=== PATIENT | male | born 1955 | race Caucasian/White ===

== ENCOUNTER 2020-03-20 14:26 | Outpatient (CLI) | payer BC, SELFPAY ==
[2020-03-20 15:45] LABS: Alanine Aminotransferase 21 U/L (4-50); Albumin Level 4.4 g/dL (3.5-5.1); Alkaline Phosphatase 62 U/L (38-126); Aspartate Amino Transferase 26 U/L (17-59); Bilirubin,Total 0.5 mg/dL (0.2-1.3); Blood Urea Nitrogen 18 mg/dL (9-20); Calcium 9.2 mg/dL (8.4-10.2); Carbon Dioxide 25 mmol/L (22-30); Chloride 108 mmol/L (98-107); Estimated Glomerular Filt Rate > 60; Glucose 98 mg/dL (75-110); Potassium 4.2 mmol/L (3.4-5.0); Sodium 140 mmol/L (137-145)
== END 2020-03-20 14:27 | disposition home or self-care (01) ==
PROVIDERS: PCP Family Medicine; Visit Provider Internal Medicine Cardiovascular Disease
DX: E78.5 Hyperlipidemia, unspecified (principal)
CPT/HCPCS: 36415; 80053

== ENCOUNTER 2020-12-17 10:28 | Outpatient (CLI) | payer BC, SELFPAY ==
[2020-12-17 11:23] LABS: Alanine Aminotransferase 22 U/L (4-50); Albumin Level 3.9 g/dL (3.5-5.1); Alkaline Phosphatase 50 U/L (38-126); Anion Gap 5 mmol/L (8-16); Aspartate Amino Transferase 28 U/L (17-59); Bilirubin,Total 0.7 mg/dL (0.2-1.3); Blood Urea Nitrogen 20 mg/dL (9-20); Calcium 8.8 mg/dL (8.4-10.2); Carbon Dioxide 29 mmol/L (22-30); Chloride 107 mmol/L (98-107); Cholesterol 228 mg/dL (0-200); Estimated Glomerular Filt Rate 56; Glucose 75 mg/dL (75-110); HDL Direct 43 mg/dL; Potassium 4.5 mmol/L (3.4-5.0); Sodium 141 mmol/L (137-145); Triglycerides 139 mg/dL (<150)
[2020-12-17 11:34] LABS: LDL Cholesterol Direct 146 mg/dL
== END 2020-12-17 10:29 | disposition home or self-care (01) ==
LOC: ANHLAB 10:29
PROVIDERS: PCP Family Medicine; Visit Provider Internal Medicine Cardiovascular Disease
DX: E78.5 Hyperlipidemia, unspecified (principal)
CPT/HCPCS: 36415; 80053; 80061

== ENCOUNTER 2023-03-21 18:57 | Emergency (ER) | payer BC, MEDICARE, SELFPAY ==
[2023-03-21 19:12] VITALS: BP 141/79; PULSE 77; RESP 18; TEMP 36.6; O2SAT 96
--- NOTE | 2023-03-21 19:19 | ED.WOUNDLAC ---
HPI - Wound/Laceration General Chief Complaint: Wound/Laceration Stated Complaint: laceration lt arm Time Seen by Provider: 03/21/23 19:19 Source: patient Mode of arrival: ambulatory Limitations: no limitations History of Present Illness HPI narrative: 67-year-old male presented for complaint of laceration to the left forearm after injury today. He states he was using a screwdriver to twist a pull in to the ground when the screwdriver handle broke and the metal end struck him in the forearm. He immediately rinsed the site with the hose water and applied gauze and an sarita wrap. Denies decreased ROM to fingers/hand, numbness, tingling or weakness. Related Data Home Medications Medication Instructions Recorded Confirmed aspirin 81 mg tablet,delayed 81 mg PO DAILY 10/15/19 03/17/23 release (Aspir-Low) coQ10 (ubiquinol) 100 mg capsule 100 mg PO BID 10/15/19 03/17/23 dietary supplement tablet PO 10/15/19 03/17/23 finasteride 1 mg tablet 1 mg PO DAILY 10/15/19 03/17/23 krill oil 500 mg capsule mg PO 10/15/19 03/17/23 saw palmetto 160 mg capsule 160 mg PO BID 10/15/19 03/17/23 tamsulosin 0.4 mg capsule (Flomax) 0.4 mg PO DAILY 10/15/19 03/17/23 zinc 50 mg tablet (Chelated Zinc) 50 mg PO DAILY 10/15/19 03/17/23 Allergies Allergy/AdvReac Type Severity Reaction Status Date / Time No Known Allergies Allergy Unknown Verified 03/17/23 10:55 Review of Systems Review of Systems: CONSTITUTIONAL: Denies body aches, fever, chills, or sweats. EYES: Denies visual changes, redness, or discharge. ENT: Denies rhinorrhea, congestion CARDIOVASCULAR: Denies chest pain, palpitations, or edema. RESPIRATORY: Denies cough or dyspnea. GASTROINTESTINAL: Denies abdominal pain, nausea, vomiting, or diarrhea. SKIN: Per HPI MUSCULOSKELETAL: Denies back pain, joint pain, or myalgia. NEUROLOGIC: Denies headache, numbness, tingling, or weakness. [facility] Past Medical History Medical History CAD in [place] artery CKD (chronic kidney disease) stage 3, GFR 30-59 ml/min Dyslipidemia Former smoker Surgical History Surgical History (Updated 03/21/23 @ 20:27 by Loree Benoit APRN) History of PTCA Family History Family History Father Family history of diabetes mellitus in first degree relative Family history of cardiovascular disease, Onset Age: 79 Diabetes mellitus Mother Family history of coronary artery disease Patient's mother is Family history of lung disease Sibling Hypertension Family history of Parkinson's disease Social History Social History Social History: 30 pack year Smoking packs per day: 1 Smoking cigarettes per day: 20.0 Years smoked: 25 Smoking pack-years: 25.00 Smoking status: Former smoker Tobacco type: cigarettes Second hand tobacco smoke exposure: Yes Smoking end date: 10/09/06 Alcohol intake: current Occupation/Education: retired Additional occupation/education comments: Patient retired from working in the [employer] 2021. Comments At time of signature, I have reviewed and agree with nursing past medical, surgical, social and family history unless otherwise noted. Please see nursing chart for further information. There is no relevant family history pertinent to the presenting complaint Exam Narrative: GENERAL: Well-appearing HEAD: Normocephalic, atraumatic. EYES: conjunctivae clear, and EOMI. ENT: Mucous membranes moist. Oropharynx without edema, erythema or lesions. NECK: Supple. No lymphadenopathy CHEST: Clear to auscultation. HEART: Regular rate and rhythm. SKIN: Warm, dry. Laceration to inner left forearm 5.5 x 1.5 cm, gaping, fat exposed, bleeding controlled. No apparent tendon or nerve involvement. EXT: Full active ROM to hand and fingers. Strength and sensation intact to hands. Pulses strong and equal bilaterally. Cap refill <3seconds.
[2023-03-21] MEDS: TETANUS,DIPHTHERIA,AC PERTUSSIS ADULT (0.5 ML) BOOSTRIX IM (19:30)
== END 2023-03-21 20:25 | disposition home or self-care (01) ==
PROVIDERS: Emergency Provider Nurse Practitioner Family; PCP Family Medicine
DX: S51.812A Laceration without foreign body of left forearm, initial encounter (principal); W27.0XXA Contact with workbench tool, initial encounter; Z23 Encounter for immunization; Z87.891 Personal history of nicotine dependence; I25.10 Atherosclerotic heart disease of native coronary artery without angina pectoris; E78.5 Hyperlipidemia, unspecified; I13.10 Hypertensive heart and chronic kidney disease without heart failure, with stage 1 through stage 4 chronic kidney disease, or unspecified chronic kidney disease; N18.30 Chronic kidney disease, stage 3 unspecified; Z79.82 Long term (current) use of aspirin
CPT/HCPCS: 12042; 90471; 90715; 99213; G0463

== ENCOUNTER 2023-03-29 14:17 | Emergency (ER) | payer BC, MEDICARE, SELFPAY ==
[2023-03-29 14:24] VITALS: BP 131/70; PULSE 57; RESP 18; TEMP 36.6; O2SAT 99
--- NOTE | 2023-03-29 14:38 | ED.SKABFB ---
HPI - Skin/Abscess/Foreign Bdy General Chief complaint: Skin/Abscess/Foreign Body Stated complaint: Suture Removal Lt Forearm Time Seen by Provider: 03/29/23 14:27 Source: patient, RN notes reviewed and old records reviewed Mode of arrival: ambulatory Limitations: no limitations History of Present Illness HPI narrative: Patient presents today requesting suture removal after sustaining a laceration to the left forearm on 03/21/23 and having 10 suture placed at [facility]. He was placed on 5 days of Keflex. States he does have some tenderness and redness to the area. Related Data Home Medications Medication Instructions Recorded Confirmed aspirin 81 mg tablet,delayed 81 mg PO DAILY 10/15/19 03/29/23 release (Aspir-Low) coQ10 (ubiquinol) 100 mg capsule 100 mg PO BID 10/15/19 03/29/23 finasteride 1 mg tablet 1 mg PO DAILY 10/15/19 03/29/23 saw palmetto 160 mg capsule 160 mg PO BID 10/15/19 03/29/23 tamsulosin 0.4 mg capsule (Flomax) 0.4 mg PO DAILY 10/15/19 03/29/23 zinc 50 mg tablet (Chelated Zinc) 50 mg PO DAILY 10/15/19 03/29/23 Allergies Allergy/AdvReac Type Severity Reaction Status Date / Time No Known Allergies Allergy Unknown Verified 03/29/23 14:32 Review of Systems Review of Systems: CONSTITUTIONAL: Denies body aches, fever, chills, or sweats. EYES: Denies visual changes, redness, or discharge. ENT: Denies rhinorrhea, congestion, sore throat, or otalgia. CARDIOVASCULAR: Denies chest pain, palpitations, or edema. RESPIRATORY: Denies cough or dyspnea. GASTROINTESTINAL: Denies abdominal pain, nausea, vomiting, or diarrhea. GENITOURINARY: Denies dysuria or hematuria. SKIN: Denies rash, itching. + laceration to left forearm MUSCULOSKELETAL: Denies back pain, joint pain, or myalgia. NEUROLOGIC: Denies headache, numbness, tingling, or weakness. PSYCH: Denies depression or anxiety. [facility] Past Medical History Medical History CAD in [place] artery CKD (chronic kidney disease) stage 3, GFR 30-59 ml/min Dyslipidemia Former smoker Surgical History Surgical History History of PTCA Family History Family History Father Family history of diabetes mellitus in first degree relative Family history of cardiovascular disease, Onset Age: 79 Diabetes mellitus Mother Family history of coronary artery disease Patient's mother is Family history of lung disease Sibling Hypertension Family history of Parkinson's disease Social History Social History Social History: 30 pack year Smoking packs per day: 1 Smoking cigarettes per day: 20.0 Years smoked: 25 Smoking pack-years: 25.00 Smoking status: Former smoker Tobacco type: cigarettes Second hand tobacco smoke exposure: Yes Smoking end date: 10/09/06 Alcohol intake: current Occupation/Education: retired Additional occupation/education comments: Patient retired from working in the [employer] 2021. Comments At time of signature, I have reviewed and agree with nursing past medical, surgical, social and family history unless otherwise noted. Please see nursing chart for further information. There is no relevant family history pertinent to the presenting complaint Exam Narrative: GENERAL: Well-appearing, well-nourished, and in no acute distress. HEAD: Normocephalic, atraumatic. EYES: EOMI. No redness or drainage. Conjunctivae normal. ENT: Mucous membranes pink and moist. NECK: Normal AROM. CHEST: No respiratory distress. EXTREMITIES: 10 intact sutures to the left forearm laceration. Laceration has some surrounding edema and erythema. As the sutures were removed, there is a scant amount of serous sanguinous discharge. Tenderness to palpation of the laceration. SKIN: Warm, dry, no rash. Capillary refill normal. Normal skin turgor. NEUR
== END 2023-03-29 14:41 | disposition home or self-care (01) ==
PROVIDERS: Emergency Provider Nurse Practitioner; PCP Family Medicine
DX: T81.49XA Infection following a procedure, other surgical site, initial encounter (principal); L03.114 Cellulitis of left upper limb; S51.812D Laceration without foreign body of left forearm, subsequent encounter; X58.XXXD Exposure to other specified factors, subsequent encounter; E78.5 Hyperlipidemia, unspecified; I25.10 Atherosclerotic heart disease of native coronary artery without angina pectoris; Z87.891 Personal history of nicotine dependence; I13.10 Hypertensive heart and chronic kidney disease without heart failure, with stage 1 through stage 4 chronic kidney disease, or unspecified chronic kidney disease; N18.30 Chronic kidney disease, stage 3 unspecified
CPT/HCPCS: 99213; G0463

== ENCOUNTER 2025-08-22 10:56 | Emergency (ER) | payer MEDICARE, SELFPAY ==
--- NOTE | 2025-08-22 11:01 | ED.WOUNDLAC ---
HPI - Wound/Laceration General Chief Complaint: Wound/Laceration Stated Complaint: cut Source: patient, RN notes reviewed and old records reviewed Mode of arrival: ambulatory Limitations: no limitations History of Present Illness HPI narrative: 69-year-old male presents to the [facility] with a cut to the 2nd finger left hand. States that he was sharpening a knife to cut of the deer when he sliced his finger. Last tetanus was 2022 Related Data Home Medications ?Medication ?Instructions ?Recorded ?Confirmed ?Last Taken ?Type aspirin 81 mg tablet,delayed 81 mg PO DAILY 10/15/19 03/15/24 Unknown History release (Aspir-Low) coQ10 (ubiquinol) 100 mg capsule 100 mg PO BID 10/15/19 03/15/24 Unknown History finasteride 1 mg tablet 1 mg PO DAILY 10/15/19 03/15/24 Unknown History saw palmetto 160 mg capsule 160 mg PO BID 10/15/19 03/15/24 Unknown History tamsulosin 0.4 mg capsule (Flomax) 0.4 mg PO DAILY 10/15/19 03/15/24 Unknown History zinc 50 mg tablet (Chelated Zinc) 50 mg PO DAILY 10/15/19 03/15/24 Unknown History rosuvastatin 10 mg tablet 10 mg PO DAILY 03/15/24 03/15/24 Unknown History Allergies Allergy/AdvReac Type Severity Reaction Status Date / Time No Known Allergies Allergy Unknown Verified 08/22/25 10:59 Review of Systems Review of Systems: All systems reviewed & are unremarkable except as noted in HPI and below Constitutional: Constitutional: Reports no additional constitutional complaints Musculoskeletal: Musculoskeletal: Reports no additional musculoskeletal complaints Integumentary/Breasts: Skin/Breast: Reports as per HPI [facility] Past Medical History Medical History CAD in [place] artery Cardiomegaly CKD (chronic kidney disease) stage 3, GFR 30-59 ml/min Dyslipidemia Elevated prostate specific antigen [PSA] Former smoker Surgical History Surgical History History of PTCA Family History Family History Father Family history of diabetes mellitus in first degree relative Family history of cardiovascular disease, Onset Age: 79 Diabetes mellitus Mother Family history of coronary artery disease Patient's mother is Family history of lung disease Sibling Hypertension Family history of Parkinson's disease Social History Social History Social History: 30 pack year Smoking packs per day: 1 Smoking cigarettes per day: 20.0 Years smoked: 25 Smoking pack-years: 25.00 Smoking status: Former smoker Tobacco type: cigarettes Second hand tobacco smoke exposure: Yes Smoking end date: 10/09/06 Alcohol intake: current Occupation/Education: retired Additional occupation/education comments: Patient retired from working in the [employer] 2021. Comments At the time of my signature, I reviewed and agree with the nursing past medical, surgical, social, and family history. There is no relevant family history pertinent to the patient complaint. Exam Const: General: cooperative, healthy appearing, comfortable, no acute distress, well developed, alert and well nourished Nutritional Appearance: well nourished Orientation/consciousness: patient oriented x3 Limitations: no limitations HENMT: Head: normal to inspection Eyes: General: appearance normal, both eyes and all related structures Alignment and Position: alignment normal Neck: Neck: normal visual inspection, full ROM, no lymphadenopathy and no meningeal signs Chest: Chest palpation & inspection: normal inspection of the chest Resp: Effort & Inspection: normal respiratory effort and able to speak in complete sentences Cardio: Rate: regular rate Skin: General skin exam: normal color and no rashes or lesions noted Wounds: wounds noted laceration left 2nd finger size (2.3); without any surrounding erythema Neuro: General: patient oriented x3, gait normal, moves all extremities and no meningeal signs Cognition (Neuro): normal cognition Speech: normal speech Gait exam (Neuro): Normal gait present Extrem: General: normal to inspection, full ROM, capillary refill normal and normal gait Left upper extremity: hand normal ROM of fingers, no swelling and laceration 2nd digit proximal Details: irregular, with motor nerve function intact and with sensation intact; no foreign body present, not contaminated and not involving muscle tissue Psych: Appearance: grossly normal and well kempt Mental Status: mental status grossly normal Speech and movement: Normal speech and movement present and Clear speech present Affect: normal affect Attitude: cooperative Course Course Emergency Course: Patient presents for a laceration repair to the 2nd finger left hand. Trying to retrieve lidocaine from Pyxis, unable to open Pyxis due to cabinet failure. Discussed with patient to send to another facility, wait for lidocaine to arrive from hospital may be 45 minutes to an hour or attempts the suturing without lidocaine. Area was irrigated with 200 mils of saline. Patient chose to attempt suturing without lidocaine if he can tolerate will proceed. If unable to tolerate he will let me know and we will wait for the lidocaine to arrive from hospital. Patient tolerated for sutures extremely well Level of Care: Express Care Visit Vital Signs Vital signs: Vital Signs Temperature 98.1 F 08/22/25 11:04 Pulse Rate 68 08/22/25 11:04 Respiratory Rate 18 08/22/25 11:04 Blood Pressure 135/71 08/22/25 11:04 Pulse Oximetry 95 08/22/25 11:04 Oxygen Delivery Room Air 08/22/25 11:04 Temperature 98.1 F 08/22/25 11:04 Pulse Rate 68 08/22/25 11:04 Respiratory Rate 18 08/22/25 11:04 Blood Pressure 135/71 08/22/25 11:04 Pulse Oximetry 95 08/22/25 11:04 Oxygen Delivery Room Air 08/22/25 11:04 Reviewed Procedures Laceration Laceration 1: Date: 08/22/25 Time: 11:50 Site: hand (2nd finger ) Side (If applicable): left Size (cm): 2.3 Description: irregular Depth: simple, single layer Pre-repair: wound explored and irrigated (200mls) ====== Skin Level ====== Skin layer closed with: nylon Size (cm): 5-0 Number of sutures: 4 Technique: simple, interrupted ====== Subcutaneous Layer ====== ====== Muscle Layer ====== ====== Tendon Layer ====== MDM - Wound/Laceration MDM Narrative Medical decision making narrative: patient sitting in exam room. Patient is nontoxic, vitals stable. Patient with a laceration to the 2nd finger left hand. Tetanus is up-to-date, 2022. 4 sutures placed which patient tolerated well patient is appropriate for outpatient treatment with close follow-up Discharge instructions reviewed with patient, as well as provided in writing per nursing staff. The instructions also include specific and strict return/GO TO THE ER as well as f/u information. All questions have been answered, and the patient deny any further questions with discharge and discharge plan. Some parts of this dictation were generated by voice recognition software and may contain typographical and/or grammatical inaccuracies. Differential Diagnosis Differential diagnosis: Likely laceration, abrasion and avulsion of skin Critical Care Time Critical Care Time Critical Care Time: No Discharge Plan Discharge Clinical Impression: Finger laceration Patient Disposition: Home Condition: Stable Instructions: Antibiotic Form, Care For Your Stitches (DC), Finger Laceration (ED) Additional Instructions: keep area clean and dry. Wash with warm soapy water 2-3 times daily, pat dry. Wear splint to reduce range of motion, can removed to wash hands. Follow-up with primary care provider in 10-12 days for suture removal for new or worsening symptoms go directly to the emergency room Patient Language: Iranian Prescriptions: No Action aspirin [Aspir-Low] 81 mg tablet,delayed release (DR/EC) 81 mg PO DAILY finasteride 1 mg tablet 1 mg PO DAILY tamsulosin [Flomax] 0.4 mg capsule 0.4 mg PO DAILY saw palmetto 160 mg capsule 160 mg PO BID coQ10 (ubiquinol) 100 mg capsule 100 mg PO BID zinc [Chelated Zinc] 50 mg tablet 50 mg PO DAILY rosuvastatin 10 mg tablet 10 mg PO DAILY Follow-up/Referrals: Sahil Castanon MD [Primary Care Provider, Family Practice] - 2 Weeks Clinical Impression: Finger laceration Time of Disposition: 12:03
[2025-08-22 11:04] VITALS: BP 135/71; PULSE 68; RESP 18; TEMP 36.7; O2SAT 95
== END 2025-08-22 12:09 | disposition home or self-care (01) ==
PROVIDERS: Emergency Provider Nurse Practitioner; PCP Family Medicine
DX: S61.211A Laceration without foreign body of left index finger without damage to nail, initial encounter (principal); I25.10 Atherosclerotic heart disease of native coronary artery without angina pectoris; N18.30 Chronic kidney disease, stage 3 unspecified; Z87.891 Personal history of nicotine dependence; W26.0XXA Contact with knife, initial encounter
CPT/HCPCS: 12001; 99212; 99213; G0463